=== PATIENT | female | born 1995 | race Asian ===

== ENCOUNTER 2017-08-24 13:26 | Emergency (ER) | payer OTHER ==
[~2017-08-24] VITALS: Ht 154.9 cm; Wt 44.4 kg
[2017-08-24 13:37] VITALS: Ht 154.9 cm; Wt 44.4 kg
[2017-08-24] MEDS ORDERED: KETOROLAC TROMETHAMINE 30 MG/ML VIAL IV STA (13:48)
[2017-08-24] MEDS ORDERED: SODIUM CHLORIDE 0.9% 500ML 500 ML IV STA (13:48)
[2017-08-24 14:27] LABS: BASO % 0.2 %; BASO ABS # 0.01 K/uL (0-0.2); EOS % 1.3 %; EOS ABS # 0.08 K/uL (0-0.5); HEMATOCRIT 37.8 % (37-47); HEMOGLOBIN 12.1 g/dL (12.0-16.0); IG# 0.01 K/uL (0.00-0.02); LYMPH % 32.7 %; LYMPH ABS # 1.94 K/uL (1.2-3.4); MEAN CELL VOLUME 70.9 fL (80-100); MEAN CORPUSCULAR HEMOGLOBIN 22.7 pg (25-34); MEAN PLATELET VOLUME 10.8 fL (7.4-10.4); MONO % 9.9 %; MONO ABS # 0.59 K/uL (0.11-0.59); NEUT % 55.7 %; NEUT ABS # 3.31 K/uL (1.4-6.5); PLATELET COUNT 317 K/uL (130-400); RED CELL DISTRIBUTION WIDTH CV 14.5 % (11.5-14.5); RED CELL DISTRIBUTION WIDTH SD 37.5 fL (36.4-46.3); WHITE BLOOD COUNT 5.94 K/uL (4.8-10.8)
[2017-08-24 14:45] LABS: BLOOD UREA NITROGEN 12 mg/dl (7-18); CALCIUM 9.5 mg/dl (8.5-10.1); CARBON DIOXIDE 27 mmol/L (21-32); CREATININE 0.61 mg/dl (0.60-1.20); GLUCOSE 86 mg/dl (70-99); POTASSIUM 4.4 mmol/L (3.5-5.1); SODIUM 137 mmol/L (136-145)
[2017-08-24 14:49] VITALS: TEMP 36.9
[2017-08-24 16:06] VITALS: BP 128/64; PULSE 91; O2SAT 100
--- NOTE | 2017-08-24 16:38 | DIAGNOSTIC IMAGING REPORT ---
CHEST ONE VIEW PORTABLE CLINICAL HISTORY: 21 years-old Female presenting with cough, chest pain. TECHNIQUE: Portable upright AP view of the chest was obtained. COMPARISON: None. FINDINGS: Cardiomediastinal silhouette normal. Lungs and pleural spaces clear. Osseous structures normal. Upper abdomen normal. IMPRESSION: 1. No acute cardiopulmonary disease. Electronically signed by: Saurav Hughes M.D. 08/24/2017 4:36 PM Dictated Date/Time: 08/24/2017 4:36 PM
--- NOTE | 2017-08-24 19:58 | EMERGENCY ROOM VISIT NOTE ---
History Report prepared by Phong: Branden Montalvo Under the Supervision of: Dr. Josh Felder D.O. First contact with patient: 13:39 Chief Complaint: RIB PAIN Stated Complaint: CHEST PAIN NEAR RIBS History of Present Illness The patient is a 21 year old female who presents to the Emergency Room with complaints of intermittent chest pains for five days. She notes the pain worsened three days ago. She was seen by her PCP and had a XR, which showed normal. She also had a blood test that revealed anemia. She notes the chest pain has not resolved. She notes the pain has been ongoing since 0800 this morning. She is an avid rock climber. She notes the pain began after her exercise session five days ago. She notes it seems to go away with exercise. She states that leaning forward worsens the pain, though when lying flat there is no change in pain. She notes the pain is sharp with breathing. She currently rates her pain a 7/10 in severity. She denies any shortness of breath. She denies any similar symptoms in the past. Patient denies diabetes, hypertension, hyperlipidemia, CAD, history of sudden at a young age, and smoking. Patient denies swelling of calves, recent trips, history of immobilization or recent surgery, prior history of DVT, hemoptysis, history of malignancy, history of smoking, or control/estrogen use. Source of History: patient Onset: five days Position: chest Symptom Intensity: 7/10 Quality: sharp Timing: intermittent Modifying Factors (Worsening): other (leaning forward) Associated Symptoms: No SOB Review of Systems See HPI for pertinent positives & negatives. A total of 10 systems reviewed and were otherwise negative. Past Medical & Surgical Medical Problems: (1) Chest pain Family History No pertinent family history secondary to adoption Social History Smoking Status: Never Smoker Smokeless Tobacco Use: No Alcohol Use: none Drug Use: none Marital Status: single Housing Status: lives alone Occupation Status: student Current/Historical Medications No Active Prescriptions or Reported Meds Allergies Coded Allergies: No Known Allergies (Unverified , 08/24/17) Physical Exam Vital Signs Date Time Temp Pulse Resp B/P (MAP) Pulse Ox O2 Delivery O2 Flow Rate FiO2 08/24/17 16:06 91 18 128/64 100 Room Air 08/24/17 14:49 36.9 89 18 125/70 100 Room Air 08/24/17 13:37 36.7 98 18 129/65 99 Room Air Physical Exam GENERAL: Sitting up in bed, alert, well appearing, well nourished, no distress, non-toxic EYE EXAM: normal conjunctiva. OROPHARYNX: no exudate, no erythema, lips, buccal mucosa, and tongue normal and mucous membranes are moist NECK: supple, no nuchal rigidity, no adenopathy, non-tender LUNGS: Clear to auscultation. Normal chest wall mechanics HEART: no murmurs, S1 normal and S2 normal ABDOMEN: abdomen soft, non-tender, normo-active bowel sounds, no masses, no rebound or guarding. BACK: Back is symmetrical on inspection and there is no deformity, no midline tenderness, no CVA tenderness. SKIN: no rashes and no bruising UPPER EXTREMITIES: upper extremities are grossly normal. Radial pulses are equal bilaterally. LOWER EXTREMITIES: No pitting edema. Calves are equal and bilateral NEURO EXAM: Normal sensorium, cranial nerves II-XII grossly intact, normal speech, no gross weakness of arms, no gross weakness of legs. BEDSIDE US: No pericardial effusion. Medical Decision & Procedures ER Provider Diagnostic Interpretation: Radiology results as stated below per my review and the radiologist's interpretation: CHEST ONE VIEW PORTABLE CLINICAL HISTORY: 21 years-old Female presenting with cough, chest pain. TECHNIQUE: Portable upright AP view of the chest was obtained. COMPARISON: None. FINDINGS: Cardiomediastinal silhouette normal. Lungs and pleural spaces clear. Osseous structures normal. Upper abdomen normal. IMPRESSION: 1. No acute cardiopulmonary disease. Electronically signed by: Saurav Hughes M.D. 08/24/2017 4:36 PM Dictated Date/Time: 08/24/2017 4:36 PM Laboratory Results 08/24/17 14:10 Red Blood Count 5.33, Mean Corpuscular Volume 70.9, Mean Corpuscular Hemoglobin 22.7, Mean Corpuscular Hemoglobin Concent 32.0, Mean Platelet Volume 10.8, Neutrophils (%) (Auto) 55.7, Lymphocytes (%) (Auto) 32.7, Monocytes (%) (Auto) 9.9, Eosinophils (%) (Auto) 1.3, Basophils (%) (Auto) 0.2, Neutrophils # (Auto) 3.31, Lymphocytes # (Auto) 1.94, Monocytes # (Auto) 0.59, Eosinophils # (Auto) 0.08, Basophils # (Auto) 0.01 08/24/17 14:10 Test 08/24/17 14:10 White Blood Count 5.94 K/uL (4.8-10.8) Red Blood Count 5.33 M/uL (4.2-5.4) Hemoglobin 12.1 g/dL (12.0-16.0) Hematocrit 37.8 % (37-47) Mean Corpuscular Volume 70.9 fL (80-100) Mean Corpuscular Hemoglobin 22.7 pg (25-34) Mean Corpuscular Hemoglobin Concent 32.0 g/dl (32-36) Platelet Count 317 K/uL (130-400) Mean Platelet Volume 10.8 fL (7.4-10.4) Neutrophils (%) (Auto) 55.7 % Lymphocytes (%) (Auto) 32.7 % Monocytes (%) (Auto) 9.9 % Eosinophils (%) (Auto) 1.3 % Basophils (%) (Auto) 0.2 % Neutrophils # (Auto) 3.31 K/uL (1.4-6.5) Lymphocytes # (Auto) 1.94 K/uL (1.2-3.4) Monocytes # (Auto) 0.59 K/uL (0.11-0.59) Eosinophils # (Auto) 0.08 K/uL (0-0.5) Basophils # (Auto) 0.01 K/uL (0-0.2) RDW Standard Deviation 37.5 fL (36.4-46.3) RDW Coefficient of Variation 14.5 % (11.5-14.5) Immature Granulocyte % (Auto) 0.2 % Immature Granulocyte # (Auto) 0.01 K/uL (0.00-0.02) Large Platelets 1+ Hypochromasia PRESENT Ovalocytes 1+ D-Dimer 230 ug/L FEU (0-500) Anion Gap 6.0 mmol/L (3-11) Est Creatinine Clear Calc Drug Dose 103.1 ml/min Estimated GFR () > 150.0 Estimated GFR (Non- 130.5 BUN/Creatinine Ratio 19.5 (10-20) Calcium Level 9.5 mg/dl (8.5-10.1) Troponin I < 0.015 ng/ml (0-0.045) Laboratory results per my review. Medications Administered Medications (Trade) Dose Ordered Sig/Dre Route Start Time Stop Time Status Last Admin Dose Admin Ketorolac Tromethamine (Toradol Inj) 30 mg NOW STAT IV 08/24/17 13:48 08/24/17 13:49 DC 08/24/17 14:10 30 MG Sodium Chloride 500 ml @ 999 mls/hr Q31M STAT IV 08/24/17 13:48 08/24/17 14:18 DC 08/24/17 14:10 999 MLS/HR ECG Indication: chest pain Rate (beats per minute): 91 Rhythm: sinus rhythm Findings: other (J point elevation inferiorly. Normal axis. ) Change: Patient's electrocardiogram interpreted by me. ED Course ED COURSE: Vital signs were reviewed and showed normal. The patients medical record was reviewed The above diagnostic studies were performed and reviewed. ED treatments and interventions as stated above. 1340: The patient was evaluated in room C2B. A complete history and physical examination was performed. 1348: Ordered Sodium Chloride 500 ml @ 999 mls/hr IV and Toradol 30 mg IV 1645: Upon reevaluation, the patient is feeling better. Bed side US showed no pericardial effusion. I discussed my findings with the patient and she understands and agrees with the treatment plan. Based on the patients age, coexisting illnesses, exam and lab findings the decision to treat as an outpatient was made. The patient remained stable while under my care. The patient appeared well at the time of discharge. Medical Decision Differential diagnoses includes but is not limited to acute coronary syndrome, myocardial infarction, pericarditis, pulmonary embolus, aortic dissection, pneumonia, pneumothorax, musculoskeletal, shingles, esophageal. Patient is a 21-year-old female who presents to ER for pleuritic chest pain. She notes it comes and goes. Pain is worsened with leaning forward. Resolves with exertion. It is significantly worse with breathing. CBC all BMP and troponin were unremarkable with pain that has been present all day. D-dimer was negative. Chest x-ray unremarkable. EKG was nondiagnostic. Bedside ultrasound shows no pericardial effusion. Based on the patient's symptoms patient was updated bedside. UA chest favors muscle skeletal although I favor this is more of a pleurisy related to her intermittent cough. Patient was updated bedside and discharged follow-up with PCP as an outpatient. Discussed with Pt concerning signs and symptoms to watch out for. Pt was instructed to follow up with their PCP and discussed with the patient their option to return to the ED at anytime for persistent or worsening symptoms. The appropriate anticipatory guidance and out-patient management, including indications for return to the emergency department, were explained at length to the patient and understood. Medication Reconcilliation Current Medication List: was personally reviewed by me Blood Pressure Screening Patient's blood pressure: Normal blood pressure Impression Primary Impression: Pleuritic chest pain Scribe Attestation The scribe's documentation has been prepared under my direction and personally reviewed by me in its entirety. I confirm that the note above accurately reflects all work, treatment, procedures, and medical decision making performed by me. Departure Information Dispostion Home / Self-Care Prescriptions No Active Prescriptions or Reported Meds Referrals No Doctor, Assigned (PCP) Forms HOME CARE DOCUMENTATION FORM, IMPORTANT VISIT INFORMATION, WORK / SCHOOL INSTRUCTIONS Patient Instructions ED Chest Pain Atypical Unkn Cause, My [facility] Additional Instructions Please follow up with your primary care doctor or if you are a student, [facility] with in the next 24 hours. Any worsening of your symptoms, please return to the ED immediately. This includes any fevers greater than 100.4, worsening pain, chest pain, shortness breath, persistent nausea, vomiting, unable to eat or drink, or any other concerning signs or symptoms from your standpoint. Please take Tylenol or Motrin as needed for pain.
== END 2017-08-24 17:03 | disposition home or self-care (01) ==
LOC: C.EDB 13:30 → C.EDC 17:03
DX: R07.81 Pleurodynia (principal)